=== PATIENT | female | born 1960 | race Caucasian/White ===

== ENCOUNTER 2017-09-06 21:14 | Emergency (ER) | payer OTHER, BC ==
[~2017-09-06] VITALS: Ht 170.2 cm; Wt 65.8 kg
[~2017-09-06 21:14] MED LIST: Pepcid20 MG PO; Prednisone10 MG PO; Vistaril25 MG PO
[2017-09-06] MEDS ORDERED: Norco 5-325 Ta1 EACH PO (22:12)
[2017-09-06] MEDS ORDERED: IBUP600 PO (22:12)
== END 2017-09-06 23:15 | disposition home or self-care (01) ==
LOC: ER 21:14
DX: S52.502A Unspecified fracture of the lower end of left radius, initial encounter for closed fracture (principal); W17.89XA Other fall from one level to another, initial encounter; Z87.891 Personal history of nicotine dependence
CPT/HCPCS: 25605; 36415; 73100; 73110; 99153; 99284; J7030

== ENCOUNTER 2017-09-18 11:06 | Day surgery (SDC) | payer OTHER, BC ==
[~2017-09-18] VITALS: Ht 170.2 cm; Wt 68.0 kg
[~2017-09-18 11:06] MED LIST changes: +IBUP600 PO; +Norco 5-325 Ta1 EACH PO
[2017-09-18] MEDS ORDERED: IBUP800 PO (11:45)
== END 2017-09-18 23:18 | disposition home or self-care (01) ==
LOC: ORSCMMR 11:06 → ORD 12:30 → ORSCMMR 12:30
PROVIDERS: Orthopaedic Surgery
PROC: 0PSJ04Z Reposition Left Radius with Internal Fixation Device, Open Approach (ICD-10-PCS; principal; 2017-09-18 12:30)
DX: S52.502A Unspecified fracture of the lower end of left radius, initial encounter for closed fracture (principal)
CPT/HCPCS: C1713; J0690; J1100; J1885; J2250; J2405; J3010; J7120

== ENCOUNTER 2018-11-11 00:38 | Emergency (ER) | payer BC ==
[~2018-11-11] VITALS: Ht 170.2 cm; Wt 62.6 kg
[~2018-11-11 00:38] MED LIST changes: +IBUP800 PO
[2018-11-11] MEDS ORDERED: Pseudoephedrine30 MG PO (02:02)
== END 2018-11-11 02:27 | disposition home or self-care (01) ==
LOC: ER 00:38
DX: H92.01 Otalgia, right ear (principal)
CPT/HCPCS: 99283

== ENCOUNTER 2018-12-10 13:43 | Day surgery (SDC) | payer BC ==
[~2018-12-10] VITALS: Ht 170.2 cm; Wt 63.2 kg
[~2018-12-10 13:43] MED LIST changes: +Pseudoephedrine30 MG PO
--- NOTE | 2018-12-10 16:54 | NUR ---
12/10/18 1654 Tamica Honeycutt PT DENIES PO FLUIDS IN SDU. LUNGS CTA. VSS.
== END 2018-12-10 16:45 | disposition home or self-care (01) ==
LOC: ORSCSDS 13:43
PROVIDERS: Surgery
PROC: 0DBH8ZX Excision of Cecum, Via Natural or Artificial Opening Endoscopic, Diagnostic (ICD-10-PCS; principal; 2018-12-10 15:00)
DX: Z12.11 Encounter for screening for malignant neoplasm of colon (principal); D12.0 Benign neoplasm of cecum; I10 Essential (primary) hypertension; Z87.891 Personal history of nicotine dependence
CPT/HCPCS: J2250; J2405; J2704; J7120

== ENCOUNTER 2021-07-12 07:22 | Day surgery (SDC) | payer BC ==
[~2021-07-12] VITALS: Ht 170.2 cm; Wt 64.3 kg
[~2021-07-12 07:22] MED LIST changes: +LEVSOD75 PO
--- NOTE | 2021-07-12 10:58 | NUR ---
Patient up to Ambulate independently. Gait steady. Discharge instructions reviewed with patient. Patient verbalizes understanding. Copy given to patient to take home. Discharged via wheelchair to private car for ride home WITH FRIEND. PRESCRIPTION FOR PAIN MEDICATION IN DISCHARGE FOLDER WITH PT.ICE PACK GIVEN.
== END 2021-07-12 11:05 | disposition home or self-care (01) ==
LOC: ORSCMMR 07:22 → ORD 08:30 → ORSCMMR 11:05
PROVIDERS: Surgery
PROC: 0WQF0ZZ Repair Abdominal Wall, Open Approach (ICD-10-PCS; principal; 2021-07-12 08:30)
DX: K42.0 Umbilical hernia with obstruction, without gangrene (principal); E03.9 Hypothyroidism, unspecified; Z87.891 Personal history of nicotine dependence; Z79.899 Other long term (current) drug therapy
CPT/HCPCS: A9270; J0171; J0690; J1100; J1885; J2370; J2405; J2704; J3010; J7120